=== PATIENT | male | born 1970 | race Caucasian/White ===

== ENCOUNTER 2017-09-07 06:03 | Day surgery (SDC) | payer BC ==
[2017-09-07] MEDS ORDERED: DIPRIVAN 200 MG/20 ML IV ONE (06:04)
[2017-09-07] MEDS ORDERED: Versed 2 MG/2 ML Injection IV ONE (06:04)
[2017-09-07] MEDS ORDERED: Lactated Ringers 1,000 ML IV SCH (06:30)
[2017-09-07 08:32] VITALS: BP 138/79; PULSE 64; O2SAT 100
--- NOTE | 2017-09-07 14:07 | OP ---
SURGERY DATE/TIME: 09/07/2017 0656 PREOPERATIVE DIAGNOSES: 1) Change in bowel habits. 2) Black stools. POSTOPERATIVE DIAGNOSIS: 1) Mild gastritis. 2) Normal colon. PROCEDURES: 1) Esophagogastroduodenoscopy with biopsy. 2) Colonoscopy. SURGEON: Dr. Tapia. ANESTHESIA: Medications were given by the anesthesia department. HISTORY: The patient is a 47 year old white male patient presenting for endoscopic evaluation. He has been taking Famotidine for abdominal pain for the past three months. He reports he has intermittently had problems with constipation and intermittent diarrhea. He reports the presence of black stools and just a change in the overall consistency of his stools. The patient was felt the need to have endoscopic evaluation. He was appraised of the risks of the procedure including the risk of perforation, phlebitis, untoward reaction to medication, bleeding and missed lesion. The patient verbalized his understanding and desired to have the procedure performed. DESCRIPTION OF PROCEDURE: The patient was given the medications by the anesthesia department. He had continuous pulse oximetry, ECG monitoring, intermittent blood pressure monitoring and tidal CO2 monitoring during the examination. He was placed in the left lateral decubitus position. A bite block was placed and the flexible Olympus gastroscope was used to intubate the oropharynx. A view of the larynx was obtained and was normal. The scope was introduced in the esophagus which was normal throughout its length. The stomach was entered where normal gastric rugal folds were seen. These distended nicely with insufflation of air. The scope was passed along the greater curvature of the stomach to the antrum. The pylorus encountered and intubated. Duodenum inspected and found to be normal. The scope was withdrawn towards the stomach. Again a retroflex view was obtained of the lesser curvature and cardia region of the stomach and these appeared to be normal. The scope was then redirected towards the gastric antrum and biopsies were obtained to rule out the presence of Helicobacter pylori-type organisms. The scope was then removed from the patient. Next, a digital rectal exam was performed and revealed normal anal sphincter tone and no masses and normal prostate. The flexible Olympus pediatric colonoscope was used to intubate the rectum. A view of the colon was developed sequentially to the cecum including a short distance in the terminal ileum. Upon insertion and withdrawal, including a retroflex view in the rectum, no mucosal lesions were encountered. The scope was removed from the patient who tolerated the procedure well and was sent back to OP recovery in good condition. The prep was noted to be good.
== END 2017-09-07 08:23 | disposition home or self-care (01) ==
LOC: SDC 06:03
PROVIDERS: ATTEND Family Medicine
PROC: 0DB78ZX Excision of Stomach, Pylorus, Via Natural or Artificial Opening Endoscopic, Diagnostic (ICD-10-PCS; principal; 2017-09-07)
PROC: 0DJD8ZZ Inspection of Lower Intestinal Tract, Via Natural or Artificial Opening Endoscopic (ICD-10-PCS; 2017-09-07)
DX: K29.70 Gastritis, unspecified, without bleeding (principal)
CPT/HCPCS: 00740; 00810; J2250; J2704